=== PATIENT | female | born 1955 | race African-American/Black ===

== ENCOUNTER → 2018-10-26 | Outpatient (CLI) | payer BC ==
--- NOTE | 2018-10-26 10:13 | RAD ---
CT LOW DOSE LUNG SCREENING INDICATION: Baseline lung screening. Asymptomatic patient. COMPARISON STUDY: None. TECHNIQUE: Unenhanced axial images were obtained through the lungs and upper abdomen using low dose technique. Coronal and sagittal multiplanar reformatted images were also obtained. PQRS compliance statement: One or more of the following individualized dose reduction techniques were utilized for this examination: 1. Automated exposure control 2. Adjustment of the mA and/or kV according to patient size 3. Use of iterative reconstruction technique FINDINGS: Lung Nodules: Left lower lobe cluster of small solid and groundglass nodules, with the largest nodule a solid pulmonary nodule measuring 0.5 cm (series 2 image 149). Lungs and Airways: No pulmonary mass or consolidation. Bibasilar dependent and subsegmental atelectasis. Centrilobular emphysema. Normal central airways. Pleura: Normal pleural spaces. Heart and Mediastinum: The visualized portions of the thyroid gland are normal in size and attenuation. No axillary or supraclavicular lymphadenopathy. No mediastinal, hilar or retrocrural lymphadenopathy. Cardiomegaly. No pericardial effusion. Atherosclerosis of the thoracic aorta. Abdomen: Poorly evaluated due to low-dose technique. Atherosclerosis of the abdominal aorta. Colonic diverticulosis. Suspect cholelithiasis. Bones and Soft Tissues: Degenerative changes of the spine. IMPRESSION: 1. Few small indeterminate solid and groundglass pulmonary nodules. LUNG-RADS CATEGORY: 2 MANAGEMENT RECOMMENDATION: Follow up low-dose chest CT in one year. 2. Emphysema. Electronically signed by: Gordy Paez MD (10/26/2018 10:10 AM) [id number]
== END | disposition home or self-care (01) ==
LOC: CT 08:29
PROVIDERS: ATTEND Family Medicine
DX: Z12.2 Encounter for screening for malignant neoplasm of respiratory organs (principal); J43.2 Centrilobular emphysema; J98.11 Atelectasis; R91.8 Other nonspecific abnormal finding of lung field; I70.0 Atherosclerosis of aorta; K57.30 Diverticulosis of large intestine without perforation or abscess without bleeding; M47.814 Spondylosis without myelopathy or radiculopathy, thoracic region; F17.210 Nicotine dependence, cigarettes, uncomplicated
CPT/HCPCS: G0297